=== PATIENT | male | born 1955 | race Hispanic/Latino ===

== ENCOUNTER 2021-04-15 17:08 | Emergency (ER) | payer SELFPAY ==
--- NOTE | 2021-04-15 17:10 | ED.GENADULT ---
HPI - General Adult General Chief complaint: Eye Problems Stated complaint: foreign object left eye Time Seen by Provider: 04/15/21 17:10 Source: patient Mode of arrival: ambulatory Limitations: no limitations History of Present Illness HPI narrative: 65-year-old male patient presents to the [facility] with complaints of foreign body to the left eye. Patient states he was cutting some aluminum and he was wearing protective eyeglasses but states something flung up and got into his left eye feels like there is a foreign body to the upper lid. Patient does have history of diabetes and is on Metformin. Denies any vision changes at this time. Patient states he did try and put his eye in a bucket of water to rinse it out. Related Data Home Medications Medication Instructions Recorded Confirmed metformin 04/15/21 Allergies Allergy/AdvReac Type Severity Reaction Status Date / Time No Known Allergies Allergy Verified 04/15/21 17:28 Review of Systems Review of Systems: CONSTITUTIONAL: Denies fever, chills, or sweats. EYES: Denies visual changes, redness, or discharge. ENT: Denies rhinorrhea, congestion, sore throat, or otalgia. Positive foreign body to the left eye CARDIOVASCULAR: Denies chest pain, palpitations, or edema. RESPIRATORY: Denies cough or dyspnea. GASTROINTESTINAL: Denies abdominal pain, nausea, vomiting, or diarrhea. GENITOURINARY: Denies dysuria or hematuria. SKIN: Denies rash or itching. MUSCULOSKELETAL: Denies back pain, joint pain, or myalgia. NEUROLOGIC: Denies headache, numbness, or weakness. PSYCHIATRIC: Denies anxiety or depression. PMFSH Comments At the time of my signature I agree with nursing past medical history, surgical, social, and family history. There is no relevant family history pertinent to the presenting complaint. Exam Narrative: GENERAL: Well-appearing, well-nourished, and in no acute distress. HEAD: Normocephalic, atraumatic. EYES: PERRLA and EOMI. patient did have a small piece of aluminum noted to the left upper lid on inversion. The left eye was dilated and examined under Cassidy lamp which did show a very small corneal abrasion to the 4:00 area of the cornea. ENT: Nares clear, no rhinorrhea or epistaxis. Mucous membranes moist. NECK: Supple. No lymphadenopathy CHEST: Clear to auscultation. No respiratory distress. HEART: Regular rate and rhythm. No murmur heard. Normal peripheral pulses. ABDOMEN: Soft, nontender, nondistended, normal active bowel sounds. EXTREMITIES: Normal range of motion. No edema. SKIN: Warm, dry, no rash. NEURO: No focal deficits. Alert and oriented x3. Course Vital Signs Vital signs: Vital Signs Temperature 36.4 C L 04/15/21 17:19 Pulse Rate 70 04/15/21 17:19 Respiratory Rate 16 04/15/21 17:19 Blood Pressure 127/66 04/15/21 17:19 Pulse Oximetry 99 04/15/21 17:19 Temperature 36.4 C L 04/15/21 17:19 Pulse Rate 70 04/15/21 17:19 Respiratory Rate 16 04/15/21 17:19 Blood Pressure 127/66 04/15/21 17:19 Pulse Oximetry 99 04/15/21 17:19 Vital signs reviewed Medical Decision Making Differential Diagnosis Differential Diagnosis: Differential diagnosis: Conjunctivitis, foreign body, corneal ulcer, Keratitis, dendritic lesions, corneal abrasion, very orbital infection, orbital cellulitis, orbital pain, acute narrow angle glaucoma, detached retina, central retinal artery occlusion, complete hyphema, vitreous hemorrhage, optic neuritis, globe disruption Discussed with patient that we did remove the foreign body but it does appear that he has got a small scratch to the eye therefore we will discharge him home with some antibiotic ointment to put in the eye to help decrease risk of infection. Discussed with patient if he has continuing issues with I I would encourage him to see an comb tender. Patient verbalized understanding denies any other questions or concerns at this time. Vital Signs Vital Signs: Vital Signs Temperature
[2021-04-15 17:19] VITALS: BP 127/66; PULSE 70; RESP 16; TEMP 36.4; O2SAT 99
== END 2021-04-15 17:38 | disposition home or self-care (01) ==
PROVIDERS: Emergency Provider Nurse Practitioner Family
DX: T15.02XA Foreign body in cornea, left eye, initial encounter (principal); E11.9 Type 2 diabetes mellitus without complications; Z79.84 Long term (current) use of oral hypoglycemic drugs; W20.8XXA Other cause of strike by thrown, projected or falling object, initial encounter
CPT/HCPCS: 99203; A9270; G0463